=== PATIENT | male | born 1995 | race Hispanic/Latino ===

== ENCOUNTER 2019-02-20 15:30 | Emergency (ER) | payer SELFPAY | END 2019-02-20 16:26 | disposition home or self-care (01) | LOC: ERS 15:30 | DX: T67.5XXA Heat exhaustion, unspecified, initial encounter (principal); Z87.891 Personal history of nicotine dependence | CPT/HCPCS: 99283 ==

== ENCOUNTER 2019-12-15 09:53 | Emergency (ER) | payer SELFPAY | END 2019-12-15 10:21 | disposition home or self-care (01) | LOC: ERS 09:53 | DX: J06.9 Acute upper respiratory infection, unspecified (principal); Z87.891 Personal history of nicotine dependence | CPT/HCPCS: 99283 ==

== ENCOUNTER 2020-12-16 11:54 | Emergency (ER) | payer SELFPAY | END 2020-12-16 16:22 | disposition left against medical advice (07) | LOC: ERS 11:54 | DX: Z53.21 Procedure and treatment not carried out due to patient leaving prior to being seen by health care provider (principal) ==

== ENCOUNTER 2022-02-04 18:13 | Emergency (ER) | payer SELFPAY | END 2022-02-04 19:35 | disposition home or self-care (01) | LOC: ERS 18:13 | DX: H92.01 Otalgia, right ear (principal) | CPT/HCPCS: 99282 ==

== ENCOUNTER 2024-02-07 13:14 | Emergency (ER) | payer SELFPAY ==
[2024-02-07 13:50] LABS: %Basophils 2.1 % (0.0-1.0); %Lymphocytes 42.6 % (21.0-51.0); %Monocytes 11.8 % (0.0-10.0); %Neutrophils 39.5 % (42.0-75.0); Hematocrit 43.2 % (42.0-52.0); Hemoglobin 15.1 g/dL (14.0-18.0); Mean Corpuscular Hemoglobin 32.3 pg (27.0-31.0); Mean Corpuscular Volume 92.3 fL (78.0-98.0); Mean Platelet Volume 10.5 fL (7.4-10.4); Platelet Count 209 10x3/uL (130-400); RBC Distribution Width 13.1 % (11.5-14.5); Red Blood Cell (RBC) Count 4.68 mill/uL (4.70-6.10)
[2024-02-07 14:17] LABS: Alcohol Less than 10.0 mg/dL (Less than 10)
[2024-02-07 14:18] LABS: Acetaminophen Less than 10 mcg/mL (10.0-30.0); Alcohol Less than 10.0 mg/dL (Less than 10); Salicylate Less than 8.0 mg/dL (15.0-30.0)
[2024-02-07 14:20] LABS: ALT (SGPT) 5 U/L (8-55); AST (SGOT) 14 U/L (5-34); Albumin 4.2 g/dL (3.5-5.0); Alkaline Phosphatase 52 U/L (40-110); Anion Gap 11 mmol/L (10-20); BUN (Urea Nitrogen) 16 mg/dL (8.9-20.6); Bilirubin, Total 0.7 mg/dL (0.2-1.2); Calc. Creatinine Clearance 0 mL/min (70-130); Calcium 9.5 mg/dL (7.8-10.44); Carbon Dioxide 22 mmol/L (22-29); Chloride 111 mmol/L (98-107); Estimated GFR 108; Globulin 2.8 g/dL (2.4-3.5); Glucose 73 mg/dL (70-105); Potassium 4.2 mmol/L (3.5-5.1); Sodium 140 mmol/L (136-145)
[2024-02-07 15:15] LABS: Bacteria/HPF None Seen HPF (None Seen); Bilirubin Negative (Negative); Blood, Urine Negative (Negative); CAUTI Indications for Culture Pelvic or flank pain; Clarity Clear (Clear); Glucose, Urine (Dipstick) Normal (Negative); Ketone, Urine Negative (Negative); Leukocyte Negative Leu/uL (Negative); Nitrite Negative (Negative); Protein, Urine (Dipstick) Negative (Neg-Trace); RBC/HPF None Seen HPF (0-3); Squamous Epithelial 0-3 HPF (0-3); WBC/HPF 0-3 HPF (0-3)
[2024-02-07 15:21] LABS: Amphetamine Detected (NotDetected); Barbiturates Screen Not Detected (NotDetected); Benzodiazepine Screen Not Detected (NotDetected); Cocaine Metabolite Screen Not Detected (NotDetected); Methadone Not Detected (NotDetected); Methamphetamine Detected (NotDetected); Opiate Screen Not Detected (NotDetected); Oxycodone Screen Not Detected (NotDetected); Phencyclidine (PCP) Not Detected (NotDetected); THC/Cannabinoid Screen Detected (NotDetected); Tricyclic Screen Not Detected (NotDetected)
[2024-02-07 15:26] LABS: Urine Culture Reflex No No
== END 2024-02-07 16:33 | disposition left against medical advice (07) ==
LOC: ERS 13:14
DX: G47.00 Insomnia, unspecified (principal); F41.9 Anxiety disorder, unspecified; Z55.6 Problems related to health literacy
CPT/HCPCS: 36415; 80053; 80306; 80307; 81001; 84443; 85025; 99283